=== PATIENT | female | born 1960 | race Caucasian/White ===

== ENCOUNTER 2016-07-31 21:11 | Emergency (ER) | payer SELFPAY ==
[2016-07-31 21:39] LABS: UDS - AMPHET POSITIVE QUAL (NEGATIVE); UDS - BARB NEGATIVE QUAL (NEGATIVE); UDS - BENZO NEGATIVE QUAL (NEGATIVE); UDS - COCAINE NEGATIVE QUAL (NEGATIVE); UDS - METH NEGATIVE QUAL (NEGATIVE); UDS - OPIATE NEGATIVE QUAL (NEGATIVE); UDS - PCP NEGATIVE QUAL (NEGATIVE); UDS - THC NEGATIVE QUAL (NEGATIVE)
== END 2016-07-31 22:14 | disposition home or self-care (01) ==
LOC: D.ER 21:11
PROVIDERS: Nurse Practitioner Family
DX: F41.9 Anxiety disorder, unspecified (principal); F19.10 Other psychoactive substance abuse, uncomplicated

== ENCOUNTER 2016-08-01 00:17 | Emergency (ER) | payer SELFPAY | END 2016-08-01 01:24 | disposition home or self-care (01) | LOC: D.ER 00:17 | DX: Z00.00 Encounter for general adult medical examination without abnormal findings (principal) ==